=== PATIENT | male | born 1980 | race Hispanic/Latino ===

== ENCOUNTER 2018-09-07 08:09 | Day surgery (SDC) | payer OTHER ==
[2018-09-07 09:02] VITALS: TEMP 97.8
[2018-09-07] MEDS ORDERED: Lactated Ringer's 500 ML IV ONE ×2 (10:06)
[2018-09-07] MEDS ORDERED: Propofol 10 mg/ml Inj (20 ML) ONE (10:07)
[2018-09-07 10:13] VITALS: PULSE 70; RESP 13; O2SAT 100
[2018-09-07] MEDS ORDERED: Lactated Ringer's 500 ML IV SCH (10:15)
[2018-09-07] MEDS ORDERED: Simethicone 40 mg/0.6 ml Liquid (30 ml) ONE (10:17)
[2018-09-07 11:37] VITALS: BP 123/69
== END 2018-09-07 11:39 | disposition home or self-care (01) ==
LOC: C.ENDO 08:09
PROVIDERS: ATTEND Internal Medicine Gastroenterology
DX: D12.3 Benign neoplasm of transverse colon (principal); D12.5 Benign neoplasm of sigmoid colon; D12.4 Benign neoplasm of descending colon
CPT/HCPCS: 45380; 45385; 88305; J2704; J3010; J7120